=== PATIENT | female | born 1995 | race American Indian/Alaskan Native ===

== ENCOUNTER 2019-12-12 17:34 | Emergency (ER) | payer OTHER ==
[2019-12-12 18:19] VITALS: BP 112/55
[2019-12-12] MEDS ORDERED: ACETAMINOPHEN 500 MG TAB PO ONE (20:10)
[2019-12-12] MEDS ORDERED: IBUPROFEN 600 MG TAB PO ONE (20:10)
[2019-12-12 20:35] LABS: Bilirubin,Urine NEG (Negative); Blood,Urine NEG (Negative); Color,Urine Yellow (Yellow); Protein,Urine <15 mg/dL mg/dL (Negative); Urobilinogen,Urine < 2.0 mg/dL (<2.0)
[2019-12-12 20:36] LABS: HCG Qualitative,Urine Negative (Negative)
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
== END 2019-12-12 22:35 | disposition home or self-care (01) ==
LOC: ED 17:34
DX: S83.91XA Sprain of unspecified site of right knee, initial encounter (principal); M62.830 Muscle spasm of back; M62.838 Other muscle spasm; J45.909 Unspecified asthma, uncomplicated; Z79.899 Other long term (current) drug therapy; V49.59XA Passenger injured in collision with other motor vehicles in traffic accident, initial encounter; Y92.410 Unspecified street and highway as the place of occurrence of the external cause; Y93.89 Activity, other specified; Y99.8 Other external cause status
CPT/HCPCS: 72040; 72072; 81001; 81025; 87086